=== PATIENT | female | born 1960 ===

== ENCOUNTER 2021-08-07 17:57 | Emergency (ER) | payer SELFPAY ==
[~2021-08-07] VITALS: Ht 165.1 cm; Wt 90.3 kg
[2021-08-07] MEDS ORDERED: METOCLOPRAMIDE INJ 10 MG/2 ML (REGLAN) IVP STA (18:01)
[2021-08-07] MEDS ORDERED: KETOROLAC 30 MG/ML VIAL IVP STA (18:01)
[2021-08-07 18:11] LABS: BASOPHILS # (AUTO) 0.1 10^3/uL (0.0-0.1); BASOPHILS % (AUTO) 1 % (0-10); EOSINOPHILS # (AUTO) 0.2 10^3/uL (0.0-0.3); EOSINOPHILS % (AUTO) 1 % (0-10); HEMATOCRIT 38 % (35-52); LYMPHOCYTES # (AUTO) 0.7 10^3/uL (1.0-4.0); LYMPHOCYTES % (AUTO) 5 % (12-44); MEAN CORPUSCULAR HEMOGLOBIN 30 pg (25-34); MEAN CORPUSCULAR HGB CONC 35 g/dL (32-36); MEAN CORPUSCULAR VOLUME 86 fL (80-99); MONOCYTES # (AUTO) 0.5 10^3/uL (0.0-1.0); MONOCYTES % (AUTO) 4 % (0-12); NEUTROPHILS # (AUTO) 12.9 10^3/uL (1.8-7.8); NEUTROPHILS % (AUTO) 89 % (42-75); PLATELET COUNT 350 10^3/uL (130-400); WHITE BLOOD COUNT 14.5 10^3/uL (4.3-11.0)
[2021-08-07 18:12] LABS: GLUCOSE, URINE (UA) NEGATIVE (NEGATIVE); KETONES,URINE TRACE (NEGATIVE); LEUKOCYTE ESTERASE ,URINE TRACE (NEGATIVE); NITRITE,URINE POSITIVE (NEGATIVE); PROTEIN,URINE 1+ (NEGATIVE)
[2021-08-07 18:16] LABS: BACTERIA,URINE LARGE /HPF; BILIRUBIN,URINE 1+ (NEGATIVE); CLARITY,URINE CLOUDY; COLOR,URINE BROWN; RBC,URINE TNTC /HPF
[2021-08-07 18:32] LABS: BILIRUBIN,TOTAL 0.2 MG/DL (0.1-1.0); CALCIUM 9.1 MG/DL (8.5-10.1); CREATININE SERUM 0.83 MG/DL (0.60-1.30); POTASSIUM 3.9 MMOL/L (3.6-5.0); TOTAL PROTEIN 6.7 GM/DL (6.4-8.2)
--- NOTE | 2021-08-07 18:42 | ED GU-Female ---
General Chief Complaint: Back Problems Stated Complaint: LT FLANK PAIN Nursing Triage Note: PT TO ROOM FS06 VIA [facility] WITH C/O LOWER BACK PAIN X2-3 DAYS. [facility] REPORT GIVING 200MCG FENTANYL ENROUTE. History of Present Illness Date Seen by Provider: Aug 07, 2021 Time Seen by Provider: 18:05 Initial Comments 61-year-old female complains of lower back pain left flank pain and left groin pain. She reports that the back pain started 2 or 3 days ago and now she is having pain down in her groin and in her suprapubic region. Patient reports she has a history of kidney stones and thinks that she is having a kidney stone again. She has some mild dysuria. Patient was brought in via EMS and received 200 mcg of fentanyl in route. She has some mild nausea. No fevers chills cough shortness of breath or other systemic complaints Allergies and Home Medications Allergies Coded Allergies: morphine (Verified Allergy, Unknown, 08/07/21) Patient Home Medication List Home Medication List Reviewed: Yes Review of Systems Review of Systems Constitutional: No chills, No fever Respiratory: No cough, No short of breath Cardiovascular: No chest pain, No palpitations Gastrointestinal: abdominal pain; No constipation; nausea; No vomiting Genitourinary: see HPI, burning, dysuria, flank pain Musculoskeletal: back pain Skin: no symptoms reported Psychiatric/Neurological: No Symptoms Reported Endocrine: No Symptoms Reported Past [id number] Hx Patient Social History Tobacco Use?: Yes Tobacco type used: Cigarettes Smoking Status: Heavy Tobacco Smoker Smokeless Tobacco Frequency: Never a User Use of E-Cig and/or Vaping dev: No Use of E-Cig and/or Vaping Daniel: Never a User Substance use?: No Alcohol Use?: No Pt feels they are or have been: No Physical Exam Vital Signs Vital Signs - First Documented 08/07/21 18:21 Temp 37.0 Pulse 91 Resp 19 B/P (MAP) 101/58 (72) O2 Delivery Room Air Capillary Refill : Less Than 3 Seconds Height, Weight, BMI Height: '" Weight: lbs. oz. kg; 33.00 BMI Method: General Appearance: mild distress Neck: full range of motion, supple Cardiovascular: normal peripheral pulses, regular rate, rhythm Respiratory: lungs clear, normal breath sounds Gastrointestinal: soft; No guarding, No rebound; tenderness (Left lower quadrant and suprapubic) Back: no vertebral tenderness, CVA tenderness (L) Extremities: normal range of motion, non-tender Neurologic/Psychiatric: alert, normal mood/affect, oriented x 3 Skin: normal color, warm/dry Progress/Results/Core Measures Suspected Sepsis SIRS Temperature: Pulse: 91 Respiratory Rate: 19 Laboratory Tests 08/07/21 18:00: White Blood Count 14.5H Blood Pressure 101 /58 Mean: 72 Laboratory Tests 08/07/21 18:00: Creatinine 0.83, Platelet Count 350, Total Bilirubin 0.2 Results/Orders Lab Results Laboratory Tests Test 08/07/21 18:00 Range/Units White Blood Count 14.5 H 4.3-11.0 10^3/uL Red Blood Count 4.35 3.80-5.11 10^6/uL Hemoglobin 13.0 11.5-16.0 g/dL Hematocrit 38 35-52 % Mean Corpuscular Volume 86 80-99 fL Mean Corpuscular Hemoglobin 30 25-34 pg Mean Corpuscular Hemoglobin Concent 35 32-36 g/dL Red Cell Distribution Width 13.5 10.0-14.5 % Platelet Count 350 130-400 10^3/uL Mean Platelet Volume 9.0 9.0-12.2 fL Immature Granulocyte % (Auto) 1 % Neutrophils (%) (Auto) 89 H 42-75 % Lymphocytes (%) (Auto) 5 L 12-44 % Monocytes (%) (Auto) 4 0-12 % Eosinophils (%) (Auto) 1 0-10 % Basophils (%) (Auto) 1 0-10 % Neutrophils # (Auto) 12.9 H 1.8-7.8 10^3/uL Lymphocytes # (Auto) 0.7 L 1.0-4.0 10^3/uL Monocytes # (Auto) 0.5 0.0-1.0 10^3/uL Eosinophils # (Auto) 0.2 0.0-0.3 10^3/uL Basophils # (Auto) 0.1 0.0-0.1 10^3/uL Immature Granulocyte # (Auto) 0.1 0.0-0.1 10^3/uL Urine Color BROWN H Urine Clarity CLOUDY Urine pH 6.0 5-9 Urine Specific [place] 1.025 H 1.016-1.022 Urine Protein 1+ H NEGATIVE Urine Glucose (UA) NEGATIVE NEGATIVE Urine Ketones TRACE H NEGATIVE Urine Nitrite POSITIVE H NEGATIVE Urine Bilirubin 1+ H NEGATIVE Urine Urobilinogen 0.2 < = 1.0 MG/DL Urine Leukocyte Esterase TRACE H NEGATIVE Urine RBC (Auto) 3+ H NEGATIVE Urine RBC TNTC H /HPF Urine WBC NONE /HPF Urine Squamous Epithelial Cells 2-5 /HPF Urine Crystals NONE /LPF Urine Bacteria LARGE H /HPF Urine Casts NONE /LPF Urine Mucus NEGATIVE /LPF Urine Culture Indicated YES Sodium Level 137 135-145 MMOL/L Potassium Level 3.9 3.6-5.0 MMOL/L Chloride Level 105 98-107 MMOL/L Carbon Dioxide Level 21 21-32 MMOL/L Anion Gap 11 5-14 MMOL/L Blood Urea Nitrogen 17 7-18 MG/DL Creatinine 0.83 0.60-1.30 MG/DL Estimat Glomerular Filtration Rate 79 BUN/Creatinine Ratio 20 Glucose Level 104 70-105 MG/DL Calcium Level 9.1 8.5-10.1 MG/DL Corrected Calcium 9.1 8.5-10.1 MG/DL Total Bilirubin 0.2 0.1-1.0 MG/DL Aspartate Amino Transf (AST/SGOT) 13 5-34 U/L Alanine Aminotransferase (ALT/SGPT) 15 0-55 U/L Alkaline Phosphatase 115 40-136 U/L Total Protein 6.7 6.4-8.2 GM/DL Albumin 4.0 3.2-4.5 GM/DL My Orders Orders - RAMIREZ,ZAKIA L DO Cbc With Automated Diff (08/07/21 18:01) Comprehensive Metabolic Panel (08/07/21 18:01) Ua Culture If Indicated (08/07/21 18:01) Ct Abdomen/Pelvis Wo (08/07/21 18:01) Ketorolac Injection (Toradol Injection) (08/07/21 18:01) Metoclopramide Injection (Reglan Injecti (08/07/21 18:01) Manual Differential (08/07/21 18:00) Urine Culture (08/07/21 18:00) Vital Signs/I&O 08/07/21 18:21 Temp 37.0 Pulse 91 Resp 19 B/P (MAP) 101/58 (72) O2 Delivery Room Air Capillary Refill : Less Than 3 Seconds Blood Pressure Mean: 72 Progress Note : Progress Note Patient with a 4 mm kidney stone. Patient also appears to have associated urinary tract infection. I will start her on Bactrim. We will give her a take- home pack of pain medication. 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 She should follow-up with her primary care provider and urologist. Patient was aware of the cyst that was mentioned on CT and reports that been there for years. Patient will be discharged home in stable condition Departure Impression Primary Impression: Calculus of left ureter Additional Impression: Acute cystitis Qualified Codes: N30.01 - Acute cystitis with hematuria Disposition: HOME, SELF-CARE Condition: Stable Departure-Patient Inst. Patient Instructions: Kidney Stone, Adult ED, Urinary Tract Infections in Adults Add. Discharge Instructions: I encourage you to drink plenty of fluids Ibuprofen in addition to prescribed medication Please follow-up with your primary care provider or neurologist in the middle of next week All discharge instructions reviewed with patient and/or family. Voiced understanding. Scripts Hydrocodone/Acetaminophen (Hydrocodone-Acetamin 5-325 mg) 5 Mg-325 Mg Tablet 1 TAB PO Q6H PRN for PAIN-MODERATE (5-7), #10 TAB Prov: ZAKIA RAMIREZ DO 08/07/21 Sulfamethoxazole/Trimethoprim (Bactrim Ds Tablet) 1 Each Tablet 1 EACH PO BID, #10 TAB Prov: ZAKIA RAMIREZ DO 08/07/21 ZAKIA RAMIREZ DO Aug 07, 2021 18:42
--- NOTE | 2021-08-07 18:59 | Diagnostic Imaging Report ---
PROCEDURE: CT abdomen and pelvis without contrast. TECHNIQUE: Multiple contiguous axial images were obtained through the abdomen and pelvis without the use of intravenous contrast. Auto Exposure Controls were utilized during the CT exam to meet ALARA standards for radiation dose reduction. INDICATION: Left flank pain, kidney stones. COMPARISON: None available. FINDINGS: Patchy groundglass opacities are identified within the bilateral lung bases. Scattered calcite granuloma are identified within the lung bases. Small hiatal hernia. Calcified hepatic granuloma. Otherwise, the unenhanced liver is unremarkable. The unenhanced spleen is unremarkable. A 3.1 x 2.6 cm hypodense mass is identified in the left adrenal gland. This demonstrates Hounsfield units of 2. Therefore, this is felt to relate to a benign adenoma. Tiny nodule also noted within the right adrenal gland measuring up to 8 mm. The pancreas is unremarkable. Cholecystectomy. The right kidney and right ureter are unremarkable. A 0.4 cm calculus is identified within the left ureterovesicular junction. This is resulting in mild left hydroureteronephrosis and left perinephric fat stranding. Moderate vascular calcifications within the abdominal aorta and its branch vessels without aneurysmal dilatation of the abdominal aorta. The urinary bladder is predominantly decompressed, therefore not well evaluated. The uterus is not visualized, likely surgically absent. No abnormal adnexal mass lesion. Mild colonic diverticulosis without CT evidence of diverticulitis. No CT evidence of acute appendicitis. No bowel obstruction or pneumatosis. No significant adenopathy, free air or free fluid within the abdomen or pelvis. 3.5 cm ovoid hypodensity is noted within the subcutaneous tissues abutting the skin within the right gluteal region. Scattered osseous degenerative changes without acute osseous abnormality. IMPRESSION: 1. 0.4 cm calculus within the left ureterovesicular junction resulting in mild left hydroureteronephrosis and obstructive uropathy. 2. Benign left adrenal adenoma with additional tiny subcentimeter indeterminate nodule within the right adrenal gland. 3. Patchy bibasilar groundglass opacities. This is nonspecific, though could relate to an atypical infection such as Covid 19. 4. 3.5 cm subcutaneous hypodensity within the right gluteal region underlying the skin. This is favored to relate to a sebaceous cyst. Recommend clinical correlation and direct visualization. 5. Small hiatal hernia. 6. Evidence of chronic granulomatous disease. Dictated by: Dictated on workstation # [id number]
[2021-08-07] MEDS ORDERED: TRIM/SULFAMETH 160/800 (SEPTRA DS) TAB PO ONE (19:15)
[2021-08-07] MEDS ORDERED: SULF1TAB38 PO (19:17)
[2021-08-07] MEDS ORDERED: ACHD5005 PO (19:17)
[2021-08-07 19:18] LABS: BAND NEUTROPHILS 2 %; BASOPHILS % (MANUAL) 1 %; EOSINOPHILS % (MANUAL) 2 %; LYMPHOCYTES % (MANUAL) 8 %; MONOCYTES % (MANUAL) 4 %; NEUTROPHILS % (MANUAL) 83 %
[2021-08-07 19:36] VITALS: BP 106/47
== END 2021-08-07 19:36 | disposition home or self-care (01) ==
LOC: ER FS 17:59
DX: N20.1 Calculus of ureter (principal); N30.01 Acute cystitis with hematuria; F17.210 Nicotine dependence, cigarettes, uncomplicated; Z28.310 Unvaccinated for COVID-19
CPT/HCPCS: 36415; 74176; 80053; 81000; 85007; 85027; 87077; 87088